=== PATIENT | male | born 1940 | race Caucasian/White ===

== ENCOUNTER 2018-02-27 16:05 | Inpatient (IN) | payer MEDICARE, BC ==
[2018-02-27 16:54] LABS: BASOPHILS % (AUTO) 0 % (0-3); EOSINOPHILS % (AUTO) 0 % (0-9); HEMATOCRIT 46 % (39-53); HEMOGLOBIN 15.4 gm/dl (13.5-17.7); LYMPHOCYTES % (AUTO) 3.9 % (10-50); MEAN CORPUSCULAR HEMOGLOBIN 33.2 pg (27.0-32.0); MEAN CORPUSCULAR HGB CONC 33.3 gm/dl (32.0-36.0); MONOCYTES % (AUTO) 4.2 % (0-12); NEUTROPHILS % (AUTO) 91.7 % (37-80)
[2018-02-27 17:02] LABS: MEAN CORPUSCULAR VOLUME 100 fL (80-100)
[2018-02-27 17:11] LABS: ALBUMIN 3.6 gm/dl (3.4-5.0); BILIRUBIN,TOTAL 1.4 mg/dl (0.2-1.0); CARBON DIOXIDE 25.1 mEq/L (21-32); CREATININE 1.34 mg/dl (0.80-1.30); POTASSIUM 3.9 mMol/L (3.5-5.1); TOTAL PROTEIN 7.9 gm/dl (6.4-8.2)
[2018-02-27] MEDS ORDERED: SODIUM CHLORIDE 0.9% 1000ML 1,000 ML IV ONE (18:00)
[2018-02-27] MEDS: SODIUM CHLORIDE 0.9% FLUSH 10 ML SOL IV PRN (18:00)
[2018-02-27] MEDS ORDERED: ALBUTEROL HFA 60 PUFF/INHALER INH PRN (21:45)
[2018-02-27] MEDS ORDERED: LOPERAMIDE HYDROCHLORIDE 2 MG CAP PO PRN (21:54)
[2018-02-27] MEDS ORDERED: ACETAMINOPHEN 325 MG PO PRN (21:57)
[2018-02-27] MEDS ORDERED: ONDANSETRON HCL 4 MG/2 ML SOL IV PRN (21:57)
[2018-02-27] MEDS ORDERED: DIAZEPAM 5MG/ML SOL IV PRN (21:57)
[2018-02-27] MEDS ORDERED: DIAZEPAM 5 MG TAB PO PRN (21:57)
[2018-02-27] MEDS ORDERED: ALUMINUM/MAGNESIUM 30 ML SUS PO PRN (21:57)
[2018-02-27] MEDS ORDERED: THIAMINE 100 MG/ML 100 MG/ML SOL IM SCH (22:00)
[2018-02-27] MEDS: SODIUM CHLORIDE 0.9% 1000ML 1,000 ML IV SCH (22:30)
[2018-02-27] MEDS: SODIUM CHLORIDE 0.9% FLUSH 10 ML SOL IV SCH (23:00)
[2018-02-27] MEDS: NICOTINE 7 MG PATCH TD SCH (23:00)
[2018-02-28] MEDS: SODIUM CHLORIDE 0.9% 1000ML 1,000 ML IV SCH ×3 (04:00→18:44)
[2018-02-28] MEDS: SODIUM CHLORIDE 0.9% FLUSH 10 ML SOL IV SCH ×3 (06:24→23:23)
[2018-02-28 07:31] LABS: APPEARANCE,URINE Clear; BILIRUBIN,URINE 1+ (NEGATIVE); COLOR,URINE Dark yellow; GLUCOSE, URINE (UA) NEGATIVE (NEGATIVE); KETONES,URINE 2+ (NEGATIVE); LEUKOCYTE ESTERASE ,URINE NEGATIVE (NEGATIVE); NITRATE,URINE NEGATIVE (NEGATIVE); OCCULT BLOOD,URINE NEGATIVE (NEG-TRACE); PH,URINE 6.5; UROBILINOGEN,URINE 0.2 (0.2-1.0 EU)
[2018-02-28 07:45] LABS: EPITHELIAL CELLS NEGATIVE (SQUAMOUS); ICTOTEST,URINE NEGATIVE (NEGATIVE); RBC,URINE NEG (0-3AV/HPF); WBC,URINE 0-1 (0-5AV/HPF)
[2018-02-28 07:46] LABS: BACTERIA NEGATIVE (< 1+); CRYSTALS 3-6 TALC/STARCH (0-3 AVE/HPF)
[2018-02-28 07:49] LABS: MAGNESIUM 1.4 mg/dl (1.8-2.4); THYROID STIMULATING HORMONE 0.987 uIU/ml (0.358-3.740)
[2018-02-28 08:08] LABS: INR 0.95 (0.86-1.12)
[2018-02-28 08:56] LABS: BASOPHILS % (AUTO) 0 % (0-3); EOSINOPHILS % (AUTO) 0 % (0-9); HEMATOCRIT 41 % (39-53); HEMOGLOBIN 13.6 gm/dl (13.5-17.7); LYMPHOCYTES % (AUTO) 9.4 % (10-50); MEAN CORPUSCULAR HGB CONC 33.3 gm/dl (32.0-36.0); NEUTROPHILS % (AUTO) 84.2 % (37-80)
[2018-02-28 08:57] LABS: MEAN CORPUSCULAR VOLUME 99 fL (80-100)
[2018-02-28 09:00] LABS: CARBON DIOXIDE 27.2 mEq/L (21-32); CREATININE 1.37 mg/dl (0.80-1.30); POTASSIUM 3.8 mMol/L (3.5-5.1)
[2018-02-28] MEDS ORDERED: OMEPRAZOLE 20 MG CAPSULE PO SCH (09:00)
[2018-02-28] MEDS ORDERED: MAGNESIUM SULFATE 1 GM/2 ML SOL IV NR (09:00)
[2018-02-28] MEDS ORDERED: METOPROLOL SUCCINATE 25 MG TAB.ER.24H PO SCH (09:00)
[2018-02-28] MEDS ORDERED: MAGNESIUM SULFATE IV ONE (09:17)
[2018-02-28] MEDS ORDERED: SODIUM CHLORIDE 0.9% IV ONE (09:17)
[2018-02-28] MEDS: THIAMINE 100 MG TAB PO SCH (10:22)
[2018-02-28] MEDS: MULTIVITAMIN2 1 EA TAB PO SCH (10:22)
[2018-02-28] MEDS: FOLIC ACID 1 MG TAB PO SCH (10:22)
[2018-02-28] MEDS: METOPROLOL SUCCINATE 50 MG ER TAB PO SCH (10:23)
[2018-02-28] MEDS: PANTOPRAZOLE SODIUM 40 MG ECT PO SCH (10:24)
[2018-02-28] MEDS ORDERED: MAGNESIUM SULFATE 5 GM/10 ML SOL ONE (10:30)
[2018-02-28] MEDS: ALBUTEROL/IPRATROPIUM 1 VIAL SOL INH SCH ×2 (13:56→18:52)
[2018-02-28] MEDS: SIMVASTATIN 20 MG TAB PO SCH (20:51)
[2018-02-28 22:33] LABS: *FOLATE 6.3 ng/ml (2.6-20.0)
[2018-02-28] MEDS ORDERED: PATIENT EDUCATION 1 MISC PRN (22:57)
[2018-03-01] MEDS: ALBUTEROL/IPRATROPIUM 1 VIAL SOL INH SCH ×4 (00:16→18:45)
[2018-03-01] MEDS: NICOTINE 7 MG PATCH TD SCH (01:12)
[2018-03-01] MEDS: SODIUM CHLORIDE 0.9% 1000ML 1,000 ML IV SCH ×2 (01:43→11:07)
[2018-03-01] MEDS: SODIUM CHLORIDE 0.9% FLUSH 10 ML SOL IV SCH ×2 (06:52→16:45)
[2018-03-01 07:38] LABS: CALCIUM 7.5 mg/dl (8.5-10.1); CARBON DIOXIDE 24.6 mEq/L (21-32); CREATININE 0.79 mg/dl (0.80-1.30); MAGNESIUM 1.5 mg/dl (1.8-2.4)
[2018-03-01 07:43] LABS: POTASSIUM 2.6 mMol/L (3.5-5.1)
[2018-03-01] MEDS ORDERED: POTASSIUM CHLORIDE 2 MEQ/ML 60 MEQ, LIDOCAINE HCL 1% MDV 2 ML in SODIUM CHLORIDE 0.9% 1... IV ONE (07:57)
[2018-03-01] MEDS ORDERED: POTASSIUM CHLORIDE 10 MEQ TER PO SCH (08:00)
[2018-03-01] MEDS ORDERED: LIDOCAINE HCL 1% MPF 30 SOL ONE (08:15)
[2018-03-01] MEDS ORDERED: POTASSIUM CHLORIDE 2 MEQ/ML SOL IV ONE (08:15)
[2018-03-01] MEDS ORDERED: MAGNESIUM SULFATE 1 GM/2 ML SOL IV NR (08:30)
[2018-03-01] MEDS ORDERED: METRONIDAZOLE 250 MG TAB PO SCH (09:00)
[2018-03-01] MEDS: FOLIC ACID 1 MG TAB PO SCH (09:16)
[2018-03-01] MEDS: THIAMINE 100 MG TAB PO SCH (09:17)
[2018-03-01] MEDS: PANTOPRAZOLE SODIUM 40 MG ECT PO SCH (09:17)
[2018-03-01] MEDS: MULTIVITAMIN2 1 EA TAB PO SCH (09:17)
[2018-03-01] MEDS: METOPROLOL SUCCINATE 50 MG ER TAB PO SCH (09:17)
[2018-03-01] MEDS: ENOXAPARIN 40 MG SOL SC SCH (09:39)
[2018-03-01] MEDS: SODIUM CHLORIDE 0.9% FLUSH 10 ML SOL IV PRN (09:44)
[2018-03-01] MEDS ORDERED: MAGNESIUM SULFATE 5 GM/10 ML SOL ONE (10:07)
[2018-03-01] MEDS: METRONIDAZOLE 250 MG TAB PO SCH ×2 (12:44→22:00)
[2018-03-01] MEDS: NIFEDIPINE 30 MG ER TABLET PO SCH (17:38)
[2018-03-01] MEDS: POTASSIUM CHLORIDE 10 MEQ TER PO SCH ×2 (18:54→22:10)
[2018-03-01] MEDS: SIMVASTATIN 20 MG TAB PO SCH (22:00)
[2018-03-02] MEDS: NIFEDIPINE 30 MG ER TABLET PO SCH ×2 (01:22→09:39)
[2018-03-02] MEDS: NICOTINE 7 MG PATCH TD SCH (01:22)
[2018-03-02] MEDS: ALBUTEROL/IPRATROPIUM 1 VIAL SOL INH SCH ×2 (01:26→06:52)
[2018-03-02] MEDS: SODIUM CHLORIDE 0.9% FLUSH 10 ML SOL IV SCH ×2 (01:29→07:30)
[2018-03-02] MEDS: METRONIDAZOLE 250 MG TAB PO SCH (06:52)
[2018-03-02 08:05] LABS: CALCIUM 8.1 mg/dl (8.5-10.1); CARBON DIOXIDE 26.1 mEq/L (21-32); CREATININE 0.76 mg/dl (0.80-1.30); MAGNESIUM 1.4 mg/dl (1.8-2.4); POTASSIUM 3.6 mMol/L (3.5-5.1)
[2018-03-02] MEDS: FOLIC ACID 1 MG TAB PO SCH (09:29)
[2018-03-02] MEDS: MULTIVITAMIN2 1 EA TAB PO SCH (09:30)
[2018-03-02] MEDS: THIAMINE 100 MG TAB PO SCH (09:31)
[2018-03-02] MEDS: METOPROLOL SUCCINATE 50 MG ER TAB PO SCH (09:32)
[2018-03-02] MEDS: PANTOPRAZOLE SODIUM 40 MG ECT PO SCH (09:33)
[2018-03-02] MEDS: ENOXAPARIN 40 MG SOL SC SCH (09:38)
[2018-03-02 12:30] VITALS: BP 100/70; PULSE 92; RESP 20; TEMP 97.2; O2SAT 92
== END 2018-03-02 11:50 | disposition home or self-care (01) | DRG 641 ==
LOC: ED 16:05 → ACUTE CARE 20:43 → OBSVTOIN 03-01 08:00
PROVIDERS: ADMIT Emergency Medicine; ATTEND Emergency Medicine
PROC: F01L5ZZ Range of Motion and Joint Integrity Assessment of Musculoskeletal System - Lower Back / Lower Extremity (ICD-10-PCS; principal; 2018-02-28)
PROC: F01ZBZZ Bed Mobility Assessment (ICD-10-PCS; 2018-02-28)
DX: E87.1 Hypo-osmolality and hyponatremia (principal); R53.1 Weakness; E83.42 Hypomagnesemia; R05 Cough; I10 Essential (primary) hypertension; R19.7 Diarrhea, unspecified; E87.6 Hypokalemia; E78.6 Lipoprotein deficiency; R33.9 Retention of urine, unspecified; K52.9 Noninfective gastroenteritis and colitis, unspecified
CPT/HCPCS: 36415; 51798; 71046; 80048; 80053; 81001; 83735; 84132; 84443; 85025; 85610; 93012; 94150; 94640; 94664; 94762; 96365; 96366; 99070; 99219; 99283; J1650; J2405; J3475; J3480; A6232; A9270-GY; J2001

== ENCOUNTER 2018-05-01 15:00 | Inpatient (IN) | payer MEDICARE, BC ==
[2018-05-01 16:44] LABS: BASOPHILS % (AUTO) 0 % (0-3); EOSINOPHILS % (AUTO) 0 % (0-9); HEMATOCRIT 45 % (39-53); HEMOGLOBIN 15.1 gm/dl (13.5-17.7); LYMPHOCYTES % (AUTO) 3.5 % (10-50); MEAN CORPUSCULAR HEMOGLOBIN 32.1 pg (27.0-32.0); MEAN CORPUSCULAR HGB CONC 33.3 gm/dl (32.0-36.0); MEAN CORPUSCULAR VOLUME 97 fL (80-100); MONOCYTES % (AUTO) 5.9 % (0-12); NEUTROPHILS % (AUTO) 90.1 % (37-80)
[2018-05-01 16:55] LABS: ALBUMIN 3.1 gm/dl (3.4-5.0); ALKALINE PHOSPHATASE 125 IU/L (46-116); ALT 36 IU/L (14-63); AST 34 IU/L (15-37); BILIRUBIN,TOTAL 0.5 mg/dl (0.2-1.0); BLOOD UREA NITROGEN 31 mg/dl (7-18); CALCIUM 8.6 mg/dl (8.5-10.1); CARBON DIOXIDE 25.4 mEq/L (21-32); CHLORIDE 89 mMol/L (98-107); GLUCOSE 125 mg/dl (74-106); MAGNESIUM 1.8 mg/dl (1.8-2.4); POTASSIUM 3.9 mMol/L (3.5-5.1); TOTAL PROTEIN 7.4 gm/dl (6.4-8.2); TROP I < 0.017 ng/ml (0.000-0.056)
[2018-05-01 16:58] LABS: SODIUM 124 mMol/L (136-145)
[2018-05-01] MEDS ORDERED: SODIUM CHLORIDE 0.9% 1000ML 1,000 ML IV ONE (17:59)
[2018-05-01] MEDS ORDERED: ALBUTEROL HFA 60 PUFF/INHALER INH PRN (18:28)
[2018-05-01 18:30] LABS: APPEARANCE,URINE Slightly Cloudy; BILIRUBIN,URINE 1+ (NEGATIVE); COLOR,URINE Dark yellow; GLUCOSE, URINE (UA) TRACE (NEGATIVE); KETONES,URINE 2+ (NEGATIVE); LEUKOCYTE ESTERASE ,URINE NEGATIVE (NEGATIVE); NITRATE,URINE POSITIVE (NEGATIVE); OCCULT BLOOD,URINE TRACE LYSED (NEG-TRACE)
[2018-05-01 19:00] LABS: ICTOTEST,URINE NEGATIVE (NEGATIVE); RBC,URINE 0-1 (0-3AV/HPF)
[2018-05-01 19:01] LABS: BACTERIA 1+ (< 1+); CRYSTALS NEGATIVE (0-3 AVE/HPF)
[2018-05-01] MEDS ORDERED: OMEPRAZOLE 20 MG CAPSULE PO SCH (20:00)
[2018-05-01] MEDS: FOLIC ACID 1 MG TAB PO SCH (20:49)
[2018-05-01] MEDS: PANTOPRAZOLE SODIUM 40 MG ECT PO SCH (20:49)
[2018-05-01] MEDS: NIFEDIPINE 30 MG ER TABLET PO SCH (20:49)
[2018-05-01] MEDS: SIMVASTATIN 20 MG TAB PO SCH (20:49)
[2018-05-01] MEDS: METOPROLOL SUCCINATE 25 MG TAB.ER.24H PO SCH ×2 (20:50→20:58)
[2018-05-01] MEDS: Non-Formulary Medication MISC (Budesonide/Formoterol 160/4.5 2 PUFF) INH SCH (20:51)
[2018-05-01] MEDS ORDERED: SIMVASTATIN 20 MG TAB PO SCH (21:00)
[2018-05-01] MEDS: SODIUM CHLORIDE 0.9% 1000ML 1,000 ML IV SCH (23:06)
[2018-05-02 07:18] LABS: CALCIUM 7.9 mg/dl (8.5-10.1); CARBON DIOXIDE 24.3 mEq/L (21-32); CREATININE 0.9 mg/dl (0.80-1.30); POTASSIUM 3.8 mMol/L (3.5-5.1)
[2018-05-02] MEDS ORDERED: NIFEDIPINE 30 MG ER TABLET PO SCH (09:00)
[2018-05-02] MEDS ORDERED: METOPROLOL SUCCINATE 25 MG TAB.ER.24H PO SCH (09:00)
[2018-05-02] MEDS ORDERED: OMEPRAZOLE 20 MG CAPSULE PO SCH (09:00)
[2018-05-02] MEDS: SODIUM CHLORIDE 0.9% 1000ML 1,000 ML IV SCH ×2 (09:10→19:05)
[2018-05-02] MEDS: ENOXAPARIN 40 MG SOL SC SCH (09:12)
[2018-05-02] MEDS: Non-Formulary Medication MISC (Budesonide/Formoterol 160/4.5 2 PUFF) INH SCH ×2 (10:00→21:09)
[2018-05-02] MEDS ORDERED: METOPROLOL SUCCINATE 50 MG ER TAB PO SCH (15:00)
[2018-05-02] MEDS: NIFEDIPINE 30 MG ER TABLET PO SCH (16:12)
[2018-05-02] MEDS: SIMVASTATIN 20 MG TAB PO SCH (16:12)
[2018-05-02] MEDS: FOLIC ACID 1 MG TAB PO SCH (16:12)
[2018-05-02] MEDS: PANTOPRAZOLE SODIUM 40 MG ECT PO SCH (20:11)
[2018-05-03] MEDS: SODIUM CHLORIDE 0.9% 1000ML 1,000 ML IV SCH (06:40)
[2018-05-03 07:37] LABS: CALCIUM 7.8 mg/dl (8.5-10.1); CARBON DIOXIDE 21.9 mEq/L (21-32); CREATININE 0.74 mg/dl (0.80-1.30); POTASSIUM 3.4 mMol/L (3.5-5.1)
[2018-05-03 07:47] VITALS: TEMP 98.6
[2018-05-03 07:52] VITALS: BP 96/64; O2SAT 90
[2018-05-03] MEDS: Non-Formulary Medication MISC (Budesonide/Formoterol 160/4.5 2 PUFF) INH SCH (09:30)
[2018-05-03] MEDS: ENOXAPARIN 40 MG SOL SC SCH (09:31)
[2018-05-03 15:48] VITALS: PULSE 98; RESP 24
== END 2018-05-03 12:00 | disposition home or self-care (01) | DRG 641 ==
LOC: ED 15:00 → UNDOADMIN 18:25 → ACUTE CARE 18:25
PROVIDERS: ADMIT Family Medicine; ATTEND Family Medicine
PROC: F01L5YZ Range of Motion and Joint Integrity Assessment of Musculoskeletal System - Lower Back / Lower Extremity using Other Equipment (ICD-10-PCS; principal; 2018-05-02)
PROC: F01ZBZZ Bed Mobility Assessment (ICD-10-PCS; 2018-05-02)
PROC: F01ZCZZ Transfer Assessment (ICD-10-PCS; 2018-05-02)
DX: E87.1 Hypo-osmolality and hyponatremia (principal); R53.1 Weakness; J44.9 Chronic obstructive pulmonary disease, unspecified; R33.9 Retention of urine, unspecified; I10 Essential (primary) hypertension; R06.02 Shortness of breath; R05 Cough; R06.2 Wheezing
CPT/HCPCS: 36415; 51798; 80048; 80053; 81001; 83735; 84484; 85025; 87088; 94150; 94664; 96365; 99283; 99285; J1650; A9270-GY

== ENCOUNTER 2018-05-08 09:25 | Emergency (ER) | payer MEDICARE, BC ==
[2018-05-08 09:36] VITALS: TEMP 97.9
[2018-05-08 10:06] LABS: BASOPHILS % (AUTO) 1 % (0-3); EOSINOPHILS % (AUTO) 0 % (0-9); HEMATOCRIT 42 % (39-53); HEMOGLOBIN 13.9 gm/dl (13.5-17.7); MEAN CORPUSCULAR HEMOGLOBIN 31.8 pg (27.0-32.0); MEAN CORPUSCULAR HGB CONC 32.8 gm/dl (32.0-36.0); MEAN CORPUSCULAR VOLUME 97 fL (80-100); MONOCYTES % (AUTO) 14.4 % (0-12); NEUTROPHILS % (AUTO) 57.2 % (37-80)
[2018-05-08 10:18] LABS: ALBUMIN 2.7 gm/dl (3.4-5.0); BILIRUBIN,TOTAL 0.7 mg/dl (0.2-1.0); CALCIUM 8.3 mg/dl (8.5-10.1); CARBON DIOXIDE 23.1 mEq/L (21-32); CREATININE 0.74 mg/dl (0.80-1.30); MAGNESIUM 1.6 mg/dl (1.8-2.4); POTASSIUM 3.2 mMol/L (3.5-5.1); TOTAL PROTEIN 7.1 gm/dl (6.4-8.2)
[2018-05-08] MEDS ORDERED: POTASSIUM CHLORIDE 10 MEQ TER PO ONE (10:33)
[2018-05-08] MEDS ORDERED: POTASSIUM CHLORIDE 10 MEQ TER ONE (10:40)
[2018-05-08] MEDS ORDERED: MAGNESIUM OXIDE 400 MG TAB ONE (10:42)
[2018-05-08] MEDS ORDERED: MAGNESIUM OXIDE 400 MG TAB PO SCH (10:45)
[2018-05-08 10:56] LABS: APPEARANCE,URINE Slightly Cloudy; BILIRUBIN,URINE NEGATIVE (NEGATIVE); COLOR,URINE Yellow; GLUCOSE, URINE (UA) NEGATIVE (NEGATIVE); KETONES,URINE 3+ (NEGATIVE); LEUKOCYTE ESTERASE ,URINE 3+ (NEGATIVE); NITRATE,URINE POSITIVE (NEGATIVE); OCCULT BLOOD,URINE 1+ (NEG-TRACE); UROBILINOGEN,URINE 0.2 (0.2-1.0 EU)
[2018-05-08 11:06] LABS: BACTERIA 2+ (< 1+); CRYSTALS NEGATIVE (0-3 AVE/HPF); WBC,URINE TNTC (0-5AV/HPF)
[2018-05-08] MEDS ORDERED: CEFTRIAXONE 1 GM PDS IM ONE (11:46)
[2018-05-08] MEDS ORDERED: LIDOCAINE HCL 1% MPF 30 SOL ONE (12:46)
[2018-05-08] MEDS ORDERED: CEFTRIAXONE 1 GM PDS ONE (12:46)
[2018-05-08 13:48] VITALS: BP 97/56; PULSE 89; RESP 20; O2SAT 95
== END 2018-05-08 13:21 | DRG 699 ==
LOC: ED 09:25
DX: T83.511A Infection and inflammatory reaction due to indwelling urethral catheter, initial encounter (principal); E87.1 Hypo-osmolality and hyponatremia; B96.4 Proteus (mirabilis) (morganii) as the cause of diseases classified elsewhere; E83.42 Hypomagnesemia; E87.6 Hypokalemia
CPT/HCPCS: 36415; 80053; 81001; 82550; 83735; 84100; 85025; 87077; 87088; 87186; 96372; 99283; J0696; A6232; A9270-GY; J2001

== ENCOUNTER 2018-08-16 12:00 | Emergency (ER) | payer BC, MEDICARE, OTHER ==
[2018-08-16 12:16] VITALS: TEMP 97.9
[2018-08-16] MEDS ORDERED: SODIUM CHLORIDE 0.9% 1000ML 1,000 ML IV SCH (12:30)
[2018-08-16 12:31] LABS: BILIRUBIN,TOTAL 0.5 mg/dl (0.2-1.0); CALCIUM 8.8 mg/dl (8.5-10.1); CARBON DIOXIDE 21.5 mEq/L (21-32); CREATININE 1.23 mg/dl (0.80-1.30); POTASSIUM 3.9 mMol/L (3.5-5.1); TOTAL PROTEIN 7.4 gm/dl (6.4-8.2); TROP I 0.024 ng/ml (0.000-0.056)
[2018-08-16 12:32] LABS: ALCOHOL 0.026 gm/dl (0.000-0.08)
[2018-08-16 12:40] LABS: BASOPHILS % (AUTO) 1 % (0-3); EOSINOPHILS % (AUTO) 3 % (0-9); HEMATOCRIT 44 % (39-53); HEMOGLOBIN 14.3 gm/dl (13.5-17.7); LYMPHOCYTES % (AUTO) 26.9 % (10-50); MEAN CORPUSCULAR HEMOGLOBIN 30.5 pg (27.0-32.0); MEAN CORPUSCULAR HGB CONC 32.8 gm/dl (32.0-36.0); MEAN CORPUSCULAR VOLUME 93 fL (80-100); MONOCYTES % (AUTO) 9.9 % (0-12)
[2018-08-16] MEDS ORDERED: SODIUM CHLORIDE 0.9% 500 ML SOL IV SCH (14:30)
[2018-08-16 18:11] VITALS: BP 103/67; PULSE 81; RESP 18; O2SAT 97
== END 2018-08-16 17:14 | disposition home or self-care (01) | DRG 316 ==
LOC: ED 12:00
DX: I95.9 Hypotension, unspecified (principal)
CPT/HCPCS: 80053; 80307; 84484; 85025; 93005; 96365; 96366; 99283; 99285

== ENCOUNTER 2018-10-28 15:32 | Inpatient (IN) | payer MEDICARE, OTHER ==
[2018-10-28] MEDS: SODIUM CHLORIDE 0.9% FLUSH 10 ML SOL IV SCH ×2 (15:45→23:53)
[2018-10-28] MEDS ORDERED: ALBUTEROL NEB 1.25 MG/3 ML SOL INH PRN (19:49)
[2018-10-28] MEDS: SODIUM CHLORIDE 0.9% 1000ML 1,000 ML IV SCH (20:15)
[2018-10-28] MEDS ORDERED: AMOXIL/CLAVULANATE 875/125 TAB PO SCH (21:00)
[2018-10-28] MEDS ORDERED: Non-Formulary Medication MISC (Budesonide/Formoterol 160/4.5 [Budesonide/Formot 160/4.5 INH SCH (21:00)
[2018-10-28] MEDS: AMOXIL/CLAVULANATE 400/5 ML PDR PO SCH (21:22)
[2018-10-28] MEDS: LEVODOPA PO SCH (21:24)
[2018-10-28] MEDS: [UNRECOGNIZED DRUG - OTHER] PO SCH (21:24)
[2018-10-28] MEDS: CARBIDOPA PO SCH (21:24)
[2018-10-29] MEDS: SODIUM CHLORIDE 0.9% 1000ML 1,000 ML IV SCH ×4 (06:27→19:28)
[2018-10-29 07:39] LABS: CALCIUM 8.3 mg/dl (8.5-10.1); CARBON DIOXIDE 27.6 mEq/L (21-32); CREATININE 0.97 mg/dl (0.80-1.30); POTASSIUM 3.6 mMol/L (3.5-5.1); THYROID STIMULATING HORMONE 1.224 uIU/ml (0.358-3.740)
[2018-10-29] MEDS ORDERED: ENOXAPARIN 40 MG SOL SC SCH (08:15)
[2018-10-29] MEDS: SODIUM CHLORIDE 0.9% FLUSH 10 ML SOL IV SCH ×2 (08:15→19:25)
[2018-10-29] MEDS ORDERED: IBUPROFEN 400 MG TAB PO SCH (09:00)
[2018-10-29] MEDS ORDERED: THIAMINE 100 MG TAB PO SCH (09:00)
[2018-10-29] MEDS ORDERED: MAGNESIUM OXIDE 400 MG TAB PO SCH (09:00)
[2018-10-29] MEDS ORDERED: PANTOPRAZOLE SODIUM 40 MG ECT PO SCH (09:00)
[2018-10-29] MEDS ORDERED: NIFEDIPINE 30 MG ER TABLET PO SCH (09:00)
[2018-10-29] MEDS ORDERED: BUDESONIDE/FORMOTEROL 160/4.5 AER INH SCH (09:00)
[2018-10-29] MEDS ORDERED: ASPIRIN 325 MG TAB PO SCH (09:00)
[2018-10-29] MEDS ORDERED: METOPROLOL SUCCINATE 25 MG TAB.ER.24H PO SCH (09:00)
[2018-10-29] MEDS ORDERED: Non-Formulary Medication MISC (Budesonide/Formoterol 160/4.5 [Budesonide/Formot 160/4.5 INH SCH (09:00)
[2018-10-29] MEDS ORDERED: METOPROLOL SUCCINATE 50 MG ER TAB ONE (09:05)
[2018-10-29] MEDS: [UNRECOGNIZED DRUG - OTHER] PO SCH (09:11)
[2018-10-29] MEDS: CARBIDOPA PO SCH (09:11)
[2018-10-29] MEDS: LEVODOPA PO SCH (09:11)
[2018-10-29] MEDS: AMOXIL/CLAVULANATE 400/5 ML PDR PO SCH (09:17)
[2018-10-29] MEDS ORDERED: ALBUTEROL NEB SOL 2.5MG/3ML 1 VIAL SOL INH PRN (10:15)
[2018-10-29] MEDS ORDERED: CARBIDOPA/LEVODOPA 25/250 TAB PO SCH (14:00)
[2018-10-29] MEDS ORDERED: SODIUM CHLORIDE 0.9% 1000ML 1,000 ML IV ONE (15:08)
[2018-10-29 15:35] LABS: LACTIC ACID 2.1 mMol/L (0.0-2.0)
[2018-10-29 15:38] LABS: BASOPHILS % (AUTO) 1 % (0-3); EOSINOPHILS % (AUTO) 2 % (0-9); HEMATOCRIT 36 % (39-53); HEMOGLOBIN 11.8 gm/dl (13.5-17.7); LYMPHOCYTES % (AUTO) 23.4 % (10-50); MEAN CORPUSCULAR HEMOGLOBIN 31.5 pg (27.0-32.0); MEAN CORPUSCULAR HGB CONC 32.6 gm/dl (32.0-36.0); MEAN CORPUSCULAR VOLUME 97 fL (80-100); MONOCYTES % (AUTO) 8.2 % (0-12); NEUTROPHILS % (AUTO) 65.2 % (37-80)
[2018-10-29 15:40] LABS: INR 0.97 (0.86-1.12)
[2018-10-29 15:49] LABS: ALBUMIN 2.1 gm/dl (3.4-5.0); BILIRUBIN,TOTAL 0.3 mg/dl (0.2-1.0); CALCIUM 7.9 mg/dl (8.5-10.1); CARBON DIOXIDE 26.6 mEq/L (21-32); CREATININE 0.99 mg/dl (0.80-1.30); POTASSIUM 3.4 mMol/L (3.5-5.1); TOTAL PROTEIN 5.8 gm/dl (6.4-8.2)
[2018-10-29 15:50] LABS: TROP I 0.555 ng/ml (0.000-0.056)
[2018-10-29] MEDS ORDERED: VANCOMYCIN HCL 500 MG PDS 1,000 MG in SODIUM CHLORIDE 0.9% 250 ML 250 ML IV ONE (16:37)
[2018-10-29] MEDS ORDERED: PIPERACILLIN/TAZOBACT 3.375 GM 3.375 GM in SODIUM CHLORIDE 0.9% 100 ML 100 ML IV ONE (16:37)
[2018-10-29] MEDS ORDERED: SODIUM CHLORIDE 0.9% 1000ML 1,000 ML IV SCH (16:45)
[2018-10-29] MEDS ORDERED: VANCOMYCIN HYDROCHLORIDE 500 MG PDS IV ONE (16:56)
[2018-10-29] MEDS ORDERED: PIPERACILLIN/TAZOBACT 3.375 GM PDS IV ONE (16:56)
[2018-10-29 17:02] VITALS: RESP 16
[2018-10-29 17:12] LABS: LACTIC ACID 1.4 mMol/L (0.0-2.0)
[2018-10-29 17:22] LABS: TROP I 0.589 ng/ml (0.000-0.056)
[2018-10-29 20:06] VITALS: BP 88/64; PULSE 72; TEMP 97.6
[2018-10-29 20:07] VITALS: O2SAT 93
[2018-10-29] MEDS ORDERED: TAMSULOSIN HYDROCHLORIDE 0.4 MG CAP PO SCH (21:00)
[2018-10-30] MEDS ORDERED: METOPROLOL SUCCINATE 50 MG TER PO SCH (09:00)
[2018-10-30] MEDS ORDERED: BUPROPION XL 150 MG T24 PO SCH (09:00)
== END 2018-10-29 19:10 | disposition short-term general hospital (02) | DRG 945 ==
LOC: ACUTE CARE 15:45
PROVIDERS: ADMIT Family Medicine; ATTEND Family Medicine
PROC: F01K5ZZ Range of Motion and Joint Integrity Assessment of Musculoskeletal System - Upper Back / Upper Extremity (ICD-10-PCS; principal; 2018-10-29)
PROC: F01K0ZZ Muscle Performance Assessment of Musculoskeletal System - Upper Back / Upper Extremity (ICD-10-PCS; 2018-10-29)
PROC: F02Z0FZ Bathing/Showering Assessment using Assistive, Adaptive, Supportive or Protective Equipment (ICD-10-PCS; 2018-10-29)
PROC: F01ZBZZ Bed Mobility Assessment (ICD-10-PCS; 2018-10-29)
DX: R53.1 Weakness (principal); E87.1 Hypo-osmolality and hyponatremia; N39.0 Urinary tract infection, site not specified; F17.200 Nicotine dependence, unspecified, uncomplicated; E87.6 Hypokalemia; R05 Cough; R55 Syncope and collapse; R33.9 Retention of urine, unspecified; R63.4 Abnormal weight loss; I95.89 Other hypotension; F10.10 Alcohol abuse, uncomplicated; Z72.0 Tobacco use; J44.9 Chronic obstructive pulmonary disease, unspecified; R27.0 Ataxia, unspecified; R19.7 Diarrhea, unspecified
CPT/HCPCS: 36415; 80048; 80053; 84443; 84484; 85025; 85610; 87040; 93005; 93012; J1650; J2543; J3370; A6232; A9270-GY

== ENCOUNTER 2018-11-29 09:40 | Emergency (ER) | payer MEDICARE, OTHER ==
[2018-11-29 10:02] VITALS: RESP 20
[2018-11-29 10:39] LABS: BASOPHILS % (AUTO) 0 % (0-3); EOSINOPHILS % (AUTO) 0 % (0-9); HEMATOCRIT 40 % (39-53); HEMOGLOBIN 13.2 gm/dl (13.5-17.7); LYMPHOCYTES % (AUTO) 7.1 % (10-50); MEAN CORPUSCULAR VOLUME 91 fL (80-100); MONOCYTES % (AUTO) 7.2 % (0-12); NEUTROPHILS % (AUTO) 85.4 % (37-80)
[2018-11-29] MEDS ORDERED: SODIUM CHLORIDE 0.9% 1000ML 1,000 ML IV ONE (10:44)
[2018-11-29 10:49] LABS: CARBON DIOXIDE 29.2 mEq/L (21-32); CREATININE 1.17 mg/dl (0.80-1.30); POTASSIUM 4.6 mMol/L (3.5-5.1)
[2018-11-29 10:52] VITALS: TEMP 98.1
[2018-11-29 11:25] LABS: APPEARANCE,URINE Cloudy; BILIRUBIN,URINE NEGATIVE (NEGATIVE); COLOR,URINE Yellow; GLUCOSE, URINE (UA) NEGATIVE (NEGATIVE); KETONES,URINE NEGATIVE (NEGATIVE); LEUKOCYTE ESTERASE ,URINE 3+ (NEGATIVE); NITRATE,URINE NEGATIVE (NEGATIVE); OCCULT BLOOD,URINE 2+ (NEG-TRACE); PH,URINE 6.5; UROBILINOGEN,URINE 0.2 (0.2-1.0 EU)
[2018-11-29 11:36] LABS: BACTERIA 3+ (< 1+); CRYSTALS NEGATIVE (0-3 AVE/HPF); EPITHELIAL CELLS 0-1 (SQUAMOUS); RBC,URINE UNABLE (0-3AV/HPF); WBC,URINE TNTC (0-5AV/HPF)
[2018-11-29] MEDS ORDERED: CIPROFLOXACIN HCL 500 MG TAB PO SCH (11:45)
[2018-11-29] MEDS ORDERED: CIPROFLOXACIN HCL 500 MG TAB PO ONE (14:37)
[2018-11-29 15:10] VITALS: BP 153/98; PULSE 111; O2SAT 97
== END 2018-11-29 15:41 | DRG 641 ==
LOC: ED 09:40
DX: E86.0 Dehydration (principal); N39.0 Urinary tract infection, site not specified; R33.9 Retention of urine, unspecified; J44.9 Chronic obstructive pulmonary disease, unspecified; Z72.0 Tobacco use; R53.1 Weakness; R63.4 Abnormal weight loss; E87.1 Hypo-osmolality and hyponatremia; R05 Cough; R06.02 Shortness of breath
CPT/HCPCS: 51798; 80048; 81001; 85025; 87077; 87088; 87186; 96365; 96366; 99284; 99285; A9270-GY

== ENCOUNTER 2018-12-13 09:44 | Emergency (ER) | payer MEDICARE, OTHER ==
[2018-12-13 10:20] VITALS: TEMP 98.7
[2018-12-13 10:36] VITALS: BP 134/88; PULSE 87; RESP 18; O2SAT 96
== END 2018-12-13 11:25 | DRG 696 ==
LOC: ED 09:44
DX: R33.9 Retention of urine, unspecified (principal)
CPT/HCPCS: 99283; 99284; A6232